=== PATIENT | female | born 1960 | race Caucasian/White ===

== ENCOUNTER → 2017-05-08 | Outpatient (CLI) | payer OTHER ==
[~2017-05-08] MED LIST: ASCO10004 PO; BIOT1CAP3 PO; CALC1CAP8 PO; CYAN10005 PO; MULT-658 PO; MULT-706 PO; OMEG1CAP34 PO; VITA100022 PO; VITA150T PO
== END ==
LOC: STAR 09:33
PROVIDERS: ATTEND Obstetrics & Gynecology Female Pelvic Medicine and Reconstructive Surgery
DX: Z02.9 Encounter for administrative examinations, unspecified (principal)

== ENCOUNTER 2017-05-12 11:54 | Day surgery (SDC) | payer OTHER ==
[~2017-05-12] VITALS: Ht 167.6 cm; Wt 52.5 kg
[~2017-05-12 11:54] MED LIST changes: +BUPIVACAINE/PF-EPI 0.25% 1:200K ONE; +NEOMY/POLYMYXIN B GU IRR. 1 ML IRRIG ONE
[2017-05-12] MEDS ORDERED: LACTATED RINGERS 1,000 ML IV SCH (12:23)
[2017-05-12 12:49] VITALS: BP 123/76
[2017-05-12] MEDS ORDERED: FENTANYL PF 100 MCG/2ML ONE ×3 (13:27→15:14)
[2017-05-12] MEDS ORDERED: MIDAZOLAM 1 MG/ML, 2ML ONE (13:27)
[2017-05-12] MEDS ORDERED: OXYcodone 5 MG/5 ML ORAL.SOL UDC PO PRN (14:00)
[2017-05-12] MEDS ORDERED: LABETALOL 5MG/ML, 20ML IV PRN (14:00)
[2017-05-12] MEDS ORDERED: ONDANSETRON 2MG/ML, 2ML IVPush PRN (14:00)
[2017-05-12] MEDS ORDERED: MEPERIDINE/PF 25MG/0.5ML IVPush PRN (14:00)
[2017-05-12] MEDS ORDERED: HYDROmorphone 1 MG/ML, 1ML IV PRN (14:00)
[2017-05-12] MEDS ORDERED: ACETAMINOPHEN 325 MG TABLET PO PRN (14:00)
[2017-05-12] MEDS ORDERED: hydrALAzine 20 MG/ML, 1ML IV PRN (14:00)
[2017-05-12] MEDS ORDERED: PROMETHAZINE 25 MG/ML, 1ML IV PRN (14:00)
[2017-05-12] MEDS ORDERED: CEFAZOLIN 1,000 MG ONE (14:02)
[2017-05-12] MEDS ORDERED: ONDANSETRON 2MG/ML, 2ML ONE (14:02)
[2017-05-12] MEDS ORDERED: PROPOFOL 10 MG/ML, 20ML ONE (14:02)
[2017-05-12] MEDS ORDERED: DEXAMETHASONE 4 MG/ML, 1ML ONE (14:02)
[2017-05-12] MEDS ORDERED: KETOROLAC 30 MG/1 ML ONE (14:02)
[2017-05-12] MEDS ORDERED: ACETAMINOPHEN 650 MG/20.3 ML UDC ONE (15:13)
[2017-05-12] MEDS ORDERED: OXYcodone 5 MG/5 ML ORAL.SOL UDC ONE (15:14)
[2017-05-12] MEDS: FENTANYL PF 100 MCG/2ML IV PRN ×2 (15:15→15:39)
== END 2017-05-12 18:35 ==
LOC: OUT 11:54
PROVIDERS: ATTEND Obstetrics & Gynecology Female Pelvic Medicine and Reconstructive Surgery
DX: N39.3 Stress incontinence (female) (male) (principal); N81.5 Vaginal enterocele; Z98.890 Other specified postprocedural states; Z90.710 Acquired absence of both cervix and uterus
CPT/HCPCS: 57265; 57282; 57288; C1771; J0690; J1100; J1885; J2250; J2405; J2704; J3010; J7120